=== PATIENT | female | born 1970 | race Caucasian/White ===

== ENCOUNTER 2018-05-03 17:46 | Emergency (ER) | payer BC, OTHER ==
[2018-05-03 17:56] VITALS: BP 131/75; PULSE 93; TEMP 98.9; BMI 35.9
[2018-05-03] MEDS ORDERED: DIPHTH,PERTUSS(ACELL),TET 0.5 ML DISP.SYRIN IM ONE ×2 (19:54→19:58)
--- NOTE | 2018-05-03 19:58 | PDOC ---
History of Present Illness - General Chief Complaint: Burn Stated Complaint: BURN ON FOOT Time Seen by Provider: 05/03/18 19:53 History Source: Patient Exam Limitations: No Limitations - History of Present Illness Initial Comments: 05/03/18 19:53 States was cooking pasta today, hand with hot water splashed and dropped onto her left foot striking the MTP of left great toe and 1 $0.25 area proximal to that. sustained burn to left foot. States used cool water to soak foot for probably one hour after incident, and came for evaluation 05/03/18 20:05 Severity: reports: mild Pain Location: reports: lower extremity (left foot ) Associated Symptoms (Fall): denies symptoms Past History - Travel Traveled outside of the country in the last 30 days: No Close contact w/someone who was outside of country & ill: No - Past Medical History Allergies/Adverse Reactions: Allergies Allergy/AdvReac Type Severity Reaction Status Date / Time aspirin Allergy Mild Rash Verified 05/03/18 17:56 ibuprofen [From Motrin] Allergy Mild Swelling Verified 05/03/18 17:56 Penicillins Allergy Mild Rash Verified 05/03/18 17:56 Sulfa (Sulfonamide Allergy Mild Rash Verified 05/03/18 17:56 Antibiotics) eggs Allergy Severe Difficulty Uncoded 05/03/18 17:56 Breathing avalox Allergy Mild Rash Uncoded 05/03/18 17:56 quinilones Allergy Mild Rash Uncoded 05/03/18 17:56 Home Medications: Ambulatory Orders Desvenlafaxine Succinate [Pristiq] 100 mg PO DAILY 06/10/11 Brexpiprazole [Rexulti] 0.5 mg PO DAILY 05/03/18 Cancer: Yes (breast 2014) COPD: No - Suicide/Smoking/Psychosocial Hx Smoking Status: No Smoking History: Never smoked Number of Cigarettes Smoked Daily: 0 Review of Systems - Review of Systems Able to Perform ROS?: Yes Is the patient limited Afghan proficient: Yes Constitutional: Yes: See HPI. No: Symptoms Reported, Malaise : No: Symptoms Reported Musculoskeletal: Yes: Symptoms Reported, See HPI, Joint Pain (left foot first and) Integumentary: Yes: Symptoms Reported, See HPI, Erythema Neurological: Yes: See HPI. No: Symptoms reported All Other Systems: Reviewed and Negative *Physical Exam - Vital Signs Last Vital Signs Temp Pulse Resp BP Pulse Ox 98.9 F 93 H 18 131/75 95 05/03/18 17:53 05/03/18 17:53 05/03/18 17:53 05/03/18 17:53 05/03/18 17:53 - Physical Exam General Appearance: Yes: Nourished, Appropriately Dressed, Apparent Distress, Mild Distress HEENT: positive: [place], Normal ENT Inspection, TMs Normal, Pharynx Normal Neck: positive: Supple Musculoskeletal: positive: Normal Inspection, Other (Superficial partial thickness burn of left dorsum of foot, approximately 3 cm area. Not circumferential, not blistering.). negative: CVA Tenderness Extremity: positive: Normal Inspection, Normal Range of Motion. negative: Tender Integumentary: positive: Normal Color, Other (full range of motion to toes, burn is not circumferential, no other areas injured) Neurologic: positive: painter spring II-XII NML intact, Fully Oriented, Alert, Normal Mood/ Affect, Normal Response, Motor Strength 5/5 Moderate Sedation - Procedure Monitoring Vital Signs: Procedure Monitoring Vital Signs Temperature 98.9 F 05/03/18 17:53 Pulse Rate 93 H 05/03/18 17:53 Respiratory Rate 18 05/03/18 17:53 Blood Pressure 131/75 05/03/18 17:53 O2 Sat by Pulse Oximetry (%) 95 05/03/18 17:53 *DC/Admit/Observation/Transfer Diagnosis at time of Disposition: Partial thickness burn of left foot Qualifiers: Encounter type: initial encounter Qualified Code(s): T25.222A - Burn of second degree of left foot, initial encounter - Discharge Dispostion Disposition: HOME Condition at time of disposition: Stable - Referrals Referrals: Jam Leonard MD [Primary Care Provider] - - Patient Instructions Printed Discharge Instructions: DI for [place] Additional Instructions: Rest, elevate area if possible Lots of fluids to keep well hydrated Keep area clean and reapply antimicrobial/bacitracin/Silvadene cream lightly, as directed and cover with Telfa dressings/nonstick dressings as directed twice a day until wound healed Tylenol for pain relief, anti-inflammatory and antiprostaglandin effects See private physician in one to 2 days for wound check as needed Return to emergency department for worsening swelling, pain, evidence of infection - Post Discharge Activity Forms/Work/School Notes: Back to Work
== END 2018-05-03 20:14 | disposition home or self-care (01) ==
LOC: JERFT 17:46
PROC: 3E0234Z Introduction of Serum, Toxoid and Vaccine into Muscle, Percutaneous Approach (ICD-10-PCS; principal; 2018-05-03)
PROC: 2W2TX4Z Dressing of Left Foot using Bandage (ICD-10-PCS; 2018-05-03)
DX: T25.222A Burn of second degree of left foot, initial encounter (principal); X12.XXXA Contact with other hot fluids, initial encounter; Y93.G1 Activity, food preparation and clean up; Y92.010 Kitchen of single-family (private) house as the place of occurrence of the external cause; Y99.8 Other external cause status; Z85.3 Personal history of malignant neoplasm of breast; Z88.0 Allergy status to penicillin; Z88.2 Allergy status to sulfonamides; Z88.8 Allergy status to other drugs, medicaments and biological substances
CPT/HCPCS: 90715; 99281-25